=== PATIENT | male | born 1940 | race Caucasian/White ===

== ENCOUNTER 2017-04-23 17:29 | Emergency (ER) | payer OTHER, MEDICARE ==
[~2017-04-23] VITALS: Ht 182.9 cm; Wt 80.0 kg
[~2017-04-23 17:29] MED LIST: ASPI81TA82 PO; DIGO0.25 PO; FOLI1 PO; LACT20SO4 PO; NEXI10GR PO; PROP60CA PO; SIMV5TAB3 PO; THIA100T PO; VITA-83 PO; VITA100020 INJ; VITA400C70 PO
[2017-04-23 17:36] VITALS: BP 142/87; PULSE 64; RESP 19; TEMP 97.8; O2SAT 98
[2017-04-23] MEDS ORDERED: SODIUM CHLORIDE 0.9% FLUSH 10 ML FLUSH IV FLUSH PRN (17:45)
--- NOTE | 2017-04-23 18:03 | PD ---
HPI Chief Complaint: Fall Time Seen by Provider: 17:38 Travel History International Travel<30 days: No Contact w/Intl Traveler<30days: No Traveled to known affect area: No History of Present Illness HPI 76-year-old male with history of alcohol use, presents to the ER today because he apparently fell down at supermarket, witnessed by several bystanders, does not appear to have lost consciousness but was fairly disoriented when he backed got there, combative, awake and oriented times one. He denies any significant injuries. He has a abrasion to his right nose area. He had to be restrained for agitation and combativeness. Modifying Factors: None Associated Signs & Symptoms: Fall, disorientation, agitation Risk Factors: None PFSH Past Medical History Asthma: No Atrial Fibrillation: Yes Autoimmune Disease: No Heart Rhythm Problems: Yes Cancer: No Cardiovascular Problems: Yes High Cholesterol: Yes Chest Pain: No Congestive Heart Failure: No COPD: No Diabetes: No Diminished Hearing: No Endocrine: No Genitourinary: No Hypertension: Yes Immune Disorder: No Musculoskeletal: No Neurologic: No Psychiatric: No Reproductive: No Respiratory: No Sleep Apnea: No Thyroid Disease: No Past Surgical History Genitourinary Surgery: Yes (HERNIA REPAIR 2003) Other Surgery: Yes (RT INGUINAL HERNIA REPAIR) Social History Alcohol Use: Yes (6 alcoholic drinks per day) Tobacco Use: Yes (cigars occasionally) Substance Use: No Allergies-Medications (Allergen,Severity, Reaction): Coded Allergies: No Known Allergies (Verified , 04/30/13) Reported Meds & Prescriptions Reported Meds & Active Scripts Active Reported Aspirin EC (Aspirin) 81 Mg Tabdr 81 Mg PO DAILY Lipitor (Atorvastatin Calcium) 40 Mg Tab 40 Mg PO HS Memantine 10 Mg Tab 10 Mg PO DAILY Folic Acid 0.8 Mg Tab 800 Mcg PO DAILY Protonix (Pantoprazole Sodium) 40 Mg Tab 40 Mg PO DAILY Propranolol ER 24 HR (Propranolol HCl) 120 Mg Cap 120 Mg PO DAILY Digoxin 0.25 Mg Tab 0.25 Mg PO DAILY Review of Systems ROS Limitations: Intoxication, Altered Mental Status Physical Exam Narrative GENERAL: Well-developed elderly white male patient currently in moderate distress, disoriented, awake and oriented times one, alcohol on breath. SKIN: Focused skin assessment warm/dry. Abrasion over the right nose. Nontender to palpation. HEAD: Atraumatic. Normocephalic. EYES: Pupils equal and round. No scleral icterus. No injection or drainage. ENT: No nasal bleeding or discharge. Mucous membranes pink and moist. NECK: Trachea midline. No JVD. CARDIOVASCULAR: Regular rate and rhythm. No murmur appreciated. RESPIRATORY: No accessory muscle use. Clear to auscultation. Breath sounds equal bilaterally. GASTROINTESTINAL: Abdomen soft, non-tender, nondistended. Hepatic and splenic margins not palpable. MUSCULOSKELETAL: No obvious deformities. No clubbing. No cyanosis. No edema. NEUROLOGICAL: Awake and alert. No obvious cranial nerve deficits. Motor grossly within normal limits. Normal speech. PSYCHIATRIC: Mildly agitated mood and affect; insight and judgment poor. Data Data Last Documented VS Vital Signs Date Time Temp Pulse Resp B/P (MAP) Pulse Ox O2 Delivery O2 Flow Rate FiO2 04/23/17 17:36 97.8 64 19 142/87 (105) 98 Orders Orders Electrocardiogram (04/23/17 17:38) Ammonia (04/23/17 17:38) Complete Blood Count With Diff (04/23/17 17:38) Comprehensive Metabolic Panel (04/23/17 17:38) Prothrombin Time / Inr (Pt) (04/23/17 17:38) Act Partial Throm Time (Ptt) (04/23/17 17:38) Ct Brain W/O Iv Contrast(Rout) (04/23/17 17:38) Blood Glucose (04/23/17 17:38) Ecg Monitoring (04/23/17 17:38) Iv Access Insert/Monitor (04/23/17 17:38) Oximetry (04/23/17 17:38) Sodium Chloride 0.9% Flush (Ns Flush) (04/23/17 17:45) Alcohol (Ethanol) (04/23/17 17:38) Labs Laboratory Tests Test 04/23/17 18:20 White Blood Count 7.2 TH/MM3 Red Blood Count 4.29 MIL/MM3 Hemoglobin 14.3 GM/DL Hematocrit 41.3 % Mean Corpuscular Volume 96.3 FL Mean Corpuscular Hemoglobin 33.3 PG Mean Corpuscular Hemoglobin Concent 34.6 % Red Cell Distribution Width 13.2 % Platelet Count 141 TH/MM3 Mean Platelet Volume 9.8 FL Neutrophils (%) (Auto) 58.7 % Lymphocytes (%) (Auto) 29.6 % Monocytes (%) (Auto) 8.5 % Eosinophils (%) (Auto) 2.4 % Basophils (%) (Auto) 0.8 % Neutrophils # (Auto) 4.2 TH/MM3 Lymphocytes # (Auto) 2.1 TH/MM3 Monocytes # (Auto) 0.6 TH/MM3 Eosinophils # (Auto) 0.2 TH/MM3 Basophils # (Auto) 0.1 TH/MM3 CBC Comment DIFF FINAL Differential Comment Prothrombin Time 10.6 SEC Prothromb Time International Ratio 1.0 RATIO Activated Partial Thromboplast Time 21.9 SEC Blood Urea Nitrogen 9 MG/DL Creatinine 0.78 MG/DL Random Glucose 119 MG/DL Total Protein 8.0 GM/DL Albumin 3.5 GM/DL Calcium Level 8.6 MG/DL Alkaline Phosphatase 86 U/L Aspartate Amino Transf (AST/SGOT) 115 U/L Alanine Aminotransferase (ALT/SGPT) 69 U/L Total Bilirubin 0.4 MG/DL Sodium Level 137 MEQ/L Potassium Level 3.8 MEQ/L Chloride Level 104 MEQ/L Carbon Dioxide Level 22.8 MEQ/L Anion Gap 10 MEQ/L Estimat Glomerular Filtration Rate 97 ML/MIN Ammonia 39 MCMOL/L Ethyl Alcohol Level 244 MG/DL [facility] Medical Decision Making Medical Screen Exam Complete: Yes Emergency Medical Condition: Yes Medical Record Reviewed: Yes Interpretation(s) Laboratory Tests Test 04/23/17 18:20 Red Blood Count 4.29 MIL/MM3 (4.50-5.90) Platelet Count 141 TH/MM3 (150-450) Monocytes (%) (Auto) 8.5 % (0.0-8.0) Activated Partial Thromboplast Time 21.9 SEC (24.3-30.1) Random Glucose 119 MG/DL (74-106) Aspartate Amino Transf (AST/SGOT) 115 U/L (15-37) Ammonia 39 MCMOL/L (11-32) Ethyl Alcohol Level 244 MG/DL (0-5) Differential Diagnosis Fall, agitation: Intoxication versus intracranial injuries versus metabolic issues versus dehydration Narrative Course Lab work shows that he has alcohol onboard. CAT scan did not show any signs of acute intracranial injuries. He has no focal neurological deficits and is fairly calm in the ER. Physician Communication Physician Communication Case is signed out at 7 PM to , for reevaluation when sober. Diagnosis Primary Impression: Fall Additional Impression: Alcohol intoxication Condition: Stable Soontharothai,Rewadee MD Apr 23, 2017 18:03
[2017-04-23] MEDS ORDERED: MEMA1TAB2 PO (18:24)
[2017-04-23] MEDS ORDERED: DIGO0.25 PO (18:24)
[2017-04-23] MEDS ORDERED: FOLI800T PO (18:24)
[2017-04-23] MEDS ORDERED: PROT40TA PO (18:24)
[2017-04-23] MEDS ORDERED: ASPI81TA23 PO (18:24)
[2017-04-23] MEDS ORDERED: LIPI40TA PO (18:24)
[2017-04-23] MEDS ORDERED: PROP120C PO (18:24)
[2017-04-23 18:30] LABS: AUTOMATED NEUTROPHIL # 4.2 TH/MM3 (1.8-7.7); BASOPHIL # 0.1 TH/MM3 (0-0.2); BASOPHIL % 0.8 % (0.0-2.0); EOSINOPHIL # 0.2 TH/MM3 (0-0.4); EOSINOPHIL % 2.4 % (0.0-4.0); HEMATOCRIT 41.3 % (39.0-51.0); HEMO FLAGS DIFF FINAL; LYMPH % 29.6 % (9.0-44.0); LYMPHOCYTE # 2.1 TH/MM3 (1.0-4.8); MEAN CELL VOLUME 96.3 FL (80.0-100.0); MEAN CORPUSCULAR HEMOGLOBIN 33.3 PG (27.0-34.0); MEAN CORPUSCULAR HGB CONC 34.6 % (32.0-36.0); MONO % 8.5 % (0.0-8.0); NEUT % 58.7 % (16.0-70.0); PLATELET COUNT 141 TH/MM3 (150-450); RED BLOOD COUNT 4.29 MIL/MM3 (4.50-5.90); RED CELL DISTRIBUTION WIDTH 13.2 % (11.6-17.2); WHITE BLOOD COUNT 7.2 TH/MM3 (4.0-11.0)
--- NOTE | 2017-04-23 18:39 | RADRPT ---
EXAM DATE/TIME: 04/23/2017 18:14 [place] COMPARISON: CT BRAIN W/O CONTRAST, May 07, 2013, 10:22. INDICATIONS : Trauma, patient fell. RADIATION DOSE: 56.35 CTDIvol (mGy) MEDICAL HISTORY : Cardiovascular disease. Hypertension. SURGICAL HISTORY : None. ENCOUNTER: Initial ACUITY: 1 day PAIN SCALE: 0/10 LOCATION: cranial TECHNIQUE: Multiple contiguous axial images were obtained of the head. Using automated exposure control and adj ustment of the mA and/or kV according to patient size, radiation dose was kept as low as reasonably a chievable to obtain optimal diagnostic quality images. DICOM format image data is available electro nically for review and comparison. FINDINGS: CEREBRUM: Diffuse cerebral atrophy is noted. No evidence of midline shift, mass lesion, hemorrhage or acute inf arction. No extra-axial fluid collections are seen. POSTERIOR FOSSA: The cerebellum and brainstem are intact. The 4th ventricle is midline. The cerebellopontine angle i s unremarkable. EXTRACRANIAL: The visualized portion of the orbits is intact. Mucosal thickening is noted within the ethmoid air ce lls bilaterally. SKULL: The calvaria is intact. No evidence of skull fracture. CONCLUSION: 1. Diffuse cerebral atrophy. 2. No acute infarct, acute hemorrhage, mass effect or extra axial fluid collections. 3. Mucosal thickening is noted within the ethmoid air cells bilaterally. Javier Su MD on April 23, 2017 at 18:36 Board Certified Radiologist. This report was verified electronically.
[2017-04-23 18:42] LABS: APTT (PATIENT) 21.9 SEC (24.3-30.1); PROTHROMBIN TIME - PATIENT 10.6 SEC (9.8-11.6)
[2017-04-23 18:59] LABS: ALT (GPT) 69 U/L (12-78)
[2017-04-23 19:01] LABS: ALKALINE PHOSPHATASE 86 U/L (45-117); TOTAL BILIRUBIN ADULT 0.4 MG/DL (0.2-1.0)
[2017-04-23 19:09] LABS: ALCOHOL 244 MG/DL (0-5); ANION GAP 10 MEQ/L (5-15); AST (GOT) 115 U/L (15-37); BICARBONATE 22.8 MEQ/L (21.0-32.0); BLOOD UREA NITROGEN 9 MG/DL (7-18); CHLORIDE 104 MEQ/L (98-107); GLOMERULAR FILTRATION RATE 97 ML/MIN (>89); POTASSIUM 3.8 MEQ/L (3.5-5.1); SODIUM (NA) 137 MEQ/L (136-145)
--- NOTE | 2017-04-23 20:17 | PD ---
Physical Exam Date Seen by Provider: Apr 23, 2017 Time Seen by Provider: 20:14 Narrative 76-year-old male was found inebriated intoxicated outside [facility] ([facility] He was seen by the previous ER physician. Please refer to her history and physical for further details. The sign out was to follow-up on his CAT scan and blood test results. CT scan of the head has come back in its negative for any acute injury. Alcohol level is 244. Patient's is in the room currently. I went and spoke with the patient. He is awake with some slurred speech but otherwise maintaining his airway very well. GCS is 15. His informed me that patient is a regular heavy drinker. She reluctantly will take him home and I'm comfortable discharging him in which case. Data Data Last Documented VS Orders Orders Electrocardiogram (04/23/17 17:38) Ammonia (04/23/17 17:38) Complete Blood Count With Diff (04/23/17 17:38) Comprehensive Metabolic Panel (04/23/17 17:38) Prothrombin Time / Inr (Pt) (04/23/17 17:38) Act Partial Throm Time (Ptt) (04/23/17 17:38) Ct Brain W/O Iv Contrast(Rout) (04/23/17 17:38) Blood Glucose (04/23/17 17:38) Ecg Monitoring (04/23/17 17:38) Iv Access Insert/Monitor (04/23/17 17:38) Oximetry (04/23/17 17:38) Sodium Chloride 0.9% Flush (Ns Flush) (04/23/17 17:45) Alcohol (Ethanol) (04/23/17 17:38) Ed Discharge Order (04/23/17 20:09) Labs Laboratory Tests Test 04/23/17 18:20 White Blood Count 7.2 TH/MM3 Red Blood Count 4.29 MIL/MM3 Hemoglobin 14.3 GM/DL Hematocrit 41.3 % Mean Corpuscular Volume 96.3 FL Mean Corpuscular Hemoglobin 33.3 PG Mean Corpuscular Hemoglobin Concent 34.6 % Red Cell Distribution Width 13.2 % Platelet Count 141 TH/MM3 Mean Platelet Volume 9.8 FL Neutrophils (%) (Auto) 58.7 % Lymphocytes (%) (Auto) 29.6 % Monocytes (%) (Auto) 8.5 % Eosinophils (%) (Auto) 2.4 % Basophils (%) (Auto) 0.8 % Neutrophils # (Auto) 4.2 TH/MM3 Lymphocytes # (Auto) 2.1 TH/MM3 Monocytes # (Auto) 0.6 TH/MM3 Eosinophils # (Auto) 0.2 TH/MM3 Basophils # (Auto) 0.1 TH/MM3 CBC Comment DIFF FINAL Differential Comment Prothrombin Time 10.6 SEC Prothromb Time International Ratio 1.0 RATIO Activated Partial Thromboplast Time 21.9 SEC Blood Urea Nitrogen 9 MG/DL Creatinine 0.78 MG/DL Random Glucose 119 MG/DL Total Protein 8.0 GM/DL Albumin 3.5 GM/DL Calcium Level 8.6 MG/DL Alkaline Phosphatase 86 U/L Aspartate Amino Transf (AST/SGOT) 115 U/L Alanine Aminotransferase (ALT/SGPT) 69 U/L Total Bilirubin 0.4 MG/DL Sodium Level 137 MEQ/L Potassium Level 3.8 MEQ/L Chloride Level 104 MEQ/L Carbon Dioxide Level 22.8 MEQ/L Anion Gap 10 MEQ/L Estimat Glomerular Filtration Rate 97 ML/MIN Ammonia 39 MCMOL/L Ethyl Alcohol Level 244 MG/DL [facility] Supervised Visit with LACEY: No Diagnosis Primary Impression: Fall Qualified Codes: W19.XXXA - Unspecified fall, initial encounter Additional Impression: Alcohol intoxication Qualified Codes: F10.929 - Alcohol use, unspecified with intoxication, unspecified Additional Instruction: Drink alcohol in moderation. Disposition: 01 DISCHARGE HOME Condition: Stable Ulisses Braun MD Apr 23, 2017 20:17
--- NOTE | 2017-04-23 21:20 | EKG ---
Date Performed: 04/23/2017 Time Performed: 18:04:03 PTAGE: 76 years EKG: ATRIAL FIBRILLATION POSSIBLE RIGHT VENTRICULAR CONDUCTION DELAY Nonspecific ST and T wave a bnormalities ABNORMAL ECG Compared to prior electrocardiogram, rate has decreased PREVIOUS TRACING : 04/30/2013 02.46 DOCTOR: Toni Breaux Interpretating Date/Time 04/23/2017 21:18:53
== END 2017-04-23 20:18 | disposition home or self-care (01) ==
LOC: NEPC 17:29
DX: F10.129 Alcohol abuse with intoxication, unspecified (principal); S00.31XA Abrasion of nose, initial encounter; R45.1 Restlessness and agitation; I48.91 Unspecified atrial fibrillation; E78.00 Pure hypercholesterolemia, unspecified; I10 Essential (primary) hypertension; W01.0XXA Fall on same level from slipping, tripping and stumbling without subsequent striking against object, initial encounter; Y92.512 Supermarket, store or market as the place of occurrence of the external cause; Z72.0 Tobacco use; Z79.899 Other long term (current) drug therapy
CPT/HCPCS: 70450; 80053; 80307; 82140; 85025; 85610; 85730; 93005; 99284